=== PATIENT | female | born 1955 | race Caucasian/White ===

== ENCOUNTER 2021-08-18 12:25 | Day surgery (SDC) | payer MEDICARE, OTHER ==
[~2021-08-18] VITALS: Ht 160 cm; Wt 61.3 kg
[~2021-08-18 12:25] MED LIST: ALEVE220 MG PO; AMOX500 PO; Bactrim Ds Tab1 EACH PO; CITALOPRAM HBR20 M6 PO; NEOPOLHCSU OT; Percocet 5-3251 EACH PO; TRAM50 PO
--- NOTE | 2021-08-18 14:03 | NUR ---
PT ADMITTED TO [facility]. AGREES WITH PLANNED PROCEDURE. LUNG SOUNDS CLEAR.
--- NOTE | 2021-08-18 14:34 | NUR ---
08/18/21 1434 Iwona Allred History, Chart, Medications and Allergies reviewed before start of procedure. Patient confirms NPO status and agrees with scheduled surgery. 3-LEAD EKG REVIEWED WITH PHYSICIAN PRIOR TO START OF PROCEDURE. MONITOR INTACT WITH CONTINUOUS PULSE OXIMETRY AND INTERMITTENT BP. PATIENT DETERMINED TO BE ASA APPROPRIATE FOR PROPOFOL SEDATION PRIOR TO START OF PROCEDURE BY
--- NOTE | 2021-08-18 15:52 | NUR ---
Discharge instructions reviewed with patient. Patient verbalizes understanding. Copy given to patient to take home. Patient States Post-Procedure ride home has been arranged. pt tolerated po fluids without difficulty. denies pain or other c/o at this itme.
== END 2021-08-18 15:45 | disposition home or self-care (01) ==
LOC: ORSCMMR 12:25 → ORD 14:15 → ORSCMMR 14:15
PROVIDERS: Surgery
PROC: 0DBN8ZX Excision of Sigmoid Colon, Via Natural or Artificial Opening Endoscopic, Diagnostic (ICD-10-PCS; principal; 2021-08-18 14:15)
DX: Z12.11 Encounter for screening for malignant neoplasm of colon (principal); Z86.010 Personal history of colon polyps; Z80.0 Family history of malignant neoplasm of digestive organs; D12.5 Benign neoplasm of sigmoid colon; F32.A Depression, unspecified; F17.210 Nicotine dependence, cigarettes, uncomplicated; Z79.899 Other long term (current) drug therapy
CPT/HCPCS: 88305; J2704; J7120

== ENCOUNTER 2021-11-06 06:33 | Day surgery (SDC) | payer MEDICARE, OTHER ==
[~2021-11-06] VITALS: Ht 160 cm; Wt 58.4 kg
[~2021-11-06 06:33] MED LIST changes: +ALEN70 PO; +BENADRYL25 MG PO; -CITALOPRAM HBR20 M6 PO; +Celexa20 MG PO
--- NOTE | 2021-11-06 07:36 | NUR ---
PT ADMITTED TO [facility]. AGREES WITH PLANNED SURGERY. LUNG SOUNDS CLEAR.
--- NOTE | 2021-11-06 09:29 | NUR ---
11/06/21 0929 Susu Bravo BUPIVACAINE 0.75% 30ML RECONSTITUTED WITH 15ML OF 0.9% SODIUM CHLORIDE INJECTABLE TO MAKE 0.5% BUPIVACAINE.
--- NOTE | 2021-11-06 17:57 | NUR ---
SHIFT SUMMARY PATIENT ALERT WHEN AWAKE THROUGHOUT AFTERNOON. POD [address] SNYDER. MIDLINE ABD INCISION WITH ABD PAD, BINDER, AND SANGITA DRAIN. SANGITA PUTTING OUT SS DRAINAGE. TOLERATING REGULAR DIET AND LIQUIDS. IV FLUID AND ABX RUNNING. PAIN CONTROLLED WITH PO PAIN MEDS. SBA UP TO BATHROOM. SLEEPING AT THIS TIME. PLAN TO DISCHARGE TOMORROW 11/07/21.
--- NOTE | 2021-11-07 05:41 | NUR ---
DIRECTOR EMERGENCY SUMMARY NO ACUTE CHANGES THIS SHIFT. PT AAOX4 AND PLEASANT. PAIN WELL CONTROLLED WITH 2 TABS NORCO. PT SLEPT WELL THROUGH MOST OF THE NIGHT. MINIMAL SEROSANGUINOUS DRAINAGE IN SANGITA DRAIN. VSS, WILL CONTINUE TO MONITOR.
[2021-11-07] MEDS ORDERED: HYDR1TAB94 PO (13:53)
--- NOTE | 2021-11-07 15:38 | NUR ---
DISCHARGE SUMMARY POD1 UMBILICAL HERNIA REPAIN, A/OX4, VSS, TOLERATING PO, PAIN WELL MANAGED, AMBULATING IN THE HALLS INDEPENTLY. DISCUSSED DISCHARGE INFORMATION WITH THE PATIENT INCLUDING HOME CARE, FOLLOW UP APPOINTMENTS, NEW MEDICATIONS, AND THINGS TO CALL THE DOCTOR FOR SHOULD SHE SEE THEM BETWEEN NOW AND HER FOLLOW UP APPOINTMENT. DISCUSSED HOW TO EMPTY AND RESET HER SANGITA DRAIN. PT HAD NO QUESTIONS. CONTACT INFORMATION GIVEN SHOULD ANY QUESTIONS COME UP AFTER DISCHARGE. PT LEFT AMBULATORY WITH A FRIEND TO GO HOME WITH ALL PERSONAL POSSESSIONS.
== END 2021-11-07 14:50 | disposition home or self-care (01) ==
LOC: ORSCMMR 06:33 → ORD 08:15 → ORSCMMR 08:15 → SURS 11:54 → ORSCMMR 11-07 14:50
PROVIDERS: Surgery
PROC: 0WUF0JZ Supplement Abdominal Wall with Synthetic Substitute, Open Approach (ICD-10-PCS; principal; 2021-11-06 08:45)
DX: K43.0 Incisional hernia with obstruction, without gangrene (principal); I10 Essential (primary) hypertension; F32.A Depression, unspecified; F17.210 Nicotine dependence, cigarettes, uncomplicated; Z79.899 Other long term (current) drug therapy; Z85.43 Personal history of malignant neoplasm of ovary
CPT/HCPCS: A9270; C1781; J0690; J1100; J1885; J2250; J2405; J2704; J3010; J7120